=== PATIENT | male | born 1970 | race American Indian/Alaskan Native ===

== ENCOUNTER 2016-07-07 11:11 | Day surgery (SDC) | payer OTHER ==
[2016-07-07] MEDS ORDERED: XYLOCAINE 1% 20 mL ONE (12:31)
[2016-07-07 12:57] LABS: INR 1.08 (0.87-1.13)
--- NOTE | 2016-07-07 14:18 | Fluoroscopy Report ---
FLUOROSCOPY MYELOGRAM LUMBOSACRAL History: Lumbar spinal disc disease, back pain, radiculopathy. Findings: Informed consent was obtained. Sterile technique was utilized. 1% lidocaine for skin anesthesia. Using fluoroscopy guidance, a 22-gauge spinal needle was advanced into the L3-4 interspace. There was spontaneous return of clear CSF. 15 cc of Omnipaque-180 was administered intrathecally. Contrast agent was free flowing throughout the lumbar region. No canal stenosis or large epidural defect is detected. Please await the post myelogram CT for further evaluation. Impression: Successful lumbar myelogram as described.
--- NOTE | 2016-07-07 14:36 | Cat Scan Report ---
CT LUMBAR SPINE WITH CONTRAST HISTORY: Lumbar spinal disc disease, back pain. Radiculopathy. TECHNIQUE: Helical CT following intrathecal contrast agent. Sagittal and coronal reformatted images. COMPARISON: None. FINDINGS: There is normal height and alignment of the lumbar vertebral bodies. No fracture, bone lesion or subluxation. Minimal disc space narrowing at L5-S1. The remaining disc spaces are within normal limits. The facet joints are unremarkable. The conus terminates at the level of L1-2. No signal abnormality or mass. The cauda equina is unremarkable. L1-2: Normal. L2-3: Normal. L3-4: Normal. L4-5: Normal. L5-S1: Mild disc space narrowing and a mild diffuse posterior bulging disc is identified. There appears to be a focal annular tear and moderate disc protrusion which projects into the left neural foramen and results in at least 75% stenosis. There is 50% stenosis in the right neural foramen. No central canal stenosis. IMPRESSION: Bulging disc and left paracentral/left lateral disc herniation at L5-S1 with moderate to high-grade left neural foraminal stenosis. See above. Correlate for left L5 radiculopathy.
[2016-07-07] MEDS ORDERED: PERCOCET 5/325 PO ONE (15:00)
[2016-07-07 16:08] VITALS: BP 124/81
--- NOTE | 2016-07-10 08:03 | Magnetic Resonance Report ---
MRI LUMBAR SPINE WITHOUT CONTRAST HISTORY: Back pain, lumbar disc disease, radiculopathy. TECHNIQUE: axial T1, T2. sagittal T1,T2, STIR. COMPARISON: CT lumbar myelogram performed same day. FINDINGS: The conus terminates at the mid to inferior endplate of L2. This is at the lower limits of normal for tethered cord. No secondary findings of tethered cord are identified.. No signal abnormality or mass. The cauda equina is within normal limits. No central canal stenosis. 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 Normal height and alignment of the lumbar vertebra. The facet joints are in appropriate relationship. Normal bone marrow signal. No acute fracture or suspicious bone lesion. There is mild disc desiccation and narrowing at L5-S1. The remaining discs are within normal limits. Mild facet arthropathy is noted at L4-5 and L5-S1. L1-2: No abnormality. L2-3: No abnormality. L3-4: No abnormality. L4-5: No significant abnormality with the disc. Mild facet arthropathy is noted. A small synovial cyst with a few septations adjacent to the left facet joint measures 7 mm. There is no obvious mass effect on nerve roots.. L5-S1: Mild disc desiccation and narrowing is again noted. A focal left paracentral to left lateral annular tear are moderate disc protrusion is identified which projects into the left neural foramen resulting in high-grade neural foraminal stenosis estimated at 75% or greater. The right neural foramen is within normal limits. There is mild facet arthropathy and hypertrophy of the ligamentum flavum. A small synovial cyst measuring 5 mm projects from the right facet joint without obvious mass effect. IMPRESSION: Mild degenerative disc disease at L5-S1 and mild facet arthropathy at L4-5 and L5-S1. Left paracentral to left lateral disc protrusion at L5-S1 resulting in severe left L5-S1 neural foraminal stenosis. See above..
== END 2016-07-07 16:30 ==
LOC: OPU 11:11 → EDSTATUS 12:30 → OPU 16:30
PROVIDERS: ATTEND Internal Medicine
DX: M51.26 Other intervertebral disc displacement, lumbar region (principal)
CPT/HCPCS: 36415; 62304; 72132; 72148; 85610; 85730; Q9965